=== PATIENT | female | born 1990 | race Caucasian/White ===

== ENCOUNTER → 2017-03-22 | Outpatient (REF) | payer OTHER ==
[~2017-03-22] MED LIST: ACET50TA PO; IBUP80TA PO; OMEP40CA2 PO; PREN27TA3 PO
== END ==
LOC: M LAB REF 17:35
PROVIDERS: ATTEND Surgery
DX: D48.5 Neoplasm of uncertain behavior of skin (principal)

== ENCOUNTER → 2017-04-27 | Outpatient (REF) | payer OTHER | LOC: M LAB REF 10:11 | PROVIDERS: ATTEND Physician Assistant | DX: J02.9 Acute pharyngitis, unspecified (principal) ==

== ENCOUNTER 2017-09-26 12:08 | Emergency (ER) | payer OTHER ==
[2017-09-26] MEDS: ACETAMINOPHEN 325 MG TAB PO (13:22)
== END 2017-09-26 14:14 | disposition home or self-care (01) ==
LOC: M ED 12:08
DX: S00.03XA Contusion of scalp, initial encounter (principal); V48.5XXA Car driver injured in noncollision transport accident in traffic accident, initial encounter; Y92.410 Unspecified street and highway as the place of occurrence of the external cause; Y93.9 Activity, unspecified; Z79.899 Other long term (current) drug therapy
CPT/HCPCS: 70450

== ENCOUNTER → 2017-10-11 | Outpatient (REF) | payer OTHER | LOC: M LAB REF 21:12 | DX: Z11.2 Encounter for screening for other bacterial diseases (principal) | CPT/HCPCS: 87430 ==

== ENCOUNTER → 2017-10-26 | Outpatient (REF) | payer OTHER ==
[2017-10-26 17:16] LABS: ALBUMIN 4.7 GM/DL (3.2-5.2); ALBUMIN/GLOBULIN RATIO 1.34 (1.00-1.93); ALKALINE PHOSPHATASE 62 U/L (45-117); ALT/SGPT 28 U/L (12-78); ANION GAP 7 MEQ/L (8-16); AST/SGOT 19 U/L (7-37); BILIRUBIN,TOTAL 0.6 MG/DL (0.2-1.0); BLOOD UREA NITROGEN 10 MG/DL (7-18); CALCIUM LEVEL 9.4 MG/DL (8.5-10.1); CARBON DIOXIDE LEVEL 26 MEQ/L (21-32); CHLORIDE LEVEL 109 MEQ/L (98-107); CREATININE FOR GFR 0.68 MG/DL (0.55-1.30); GLOMERULAR FILTRATION RATE > 60.0 (>60); GLUCOSE, FASTING 88 MG/DL (70-100); POTASSIUM SERUM 4.1 MEQ/L (3.5-5.1); SODIUM LEVEL 142 MEQ/L (136-145); TOTAL PROTEIN 8.2 GM/DL (6.4-8.2)
== END ==
LOC: M LAB REF 16:17
DX: E66.3 Overweight (principal)

== ENCOUNTER → 2018-01-07 | Outpatient (CLI) | payer OTHER ==
[2018-01-07 14:07] LABS: HCG, SERUM QUANTITATIVE < 1.0 MIU/ML
== END ==
LOC: M LAB 12:20
DX: N91.2 Amenorrhea, unspecified (principal)
CPT/HCPCS: 84702

== ENCOUNTER → 2018-04-11 | Outpatient (REF) | payer OTHER | LOC: M LAB REF 04-12 13:32 | DX: Z12.4 Encounter for screening for malignant neoplasm of cervix (principal) ==

== ENCOUNTER 2018-06-12 07:36 | Day surgery (SDC) | payer OTHER ==
[2018-06-12] MEDS ORDERED: PROPOFOL 200 MG/20 ML VIAL As Ordered ×4 (08:09→10:41)
[2018-06-12] MEDS ORDERED: fentaNYL 100 MCG/2 ML INJECTION (J3010) As Ordered ×2 (08:10→10:22)
[2018-06-12] MEDS ORDERED: MIDAZOLAM INJ 2 MG/2 ML VIAL (J2250) As Ordered ×2 (08:10→09:48)
[2018-06-12 08:24] LABS: CONTROL LINE UCG INT CTR LINE PRESENT; URINE PREG TEST NEGATIVE (NEGATIVE)
[2018-06-12] MEDS ORDERED: dexameTHASONE 4 MG/ML 1ML VIAL (J1100) As Ordered (08:29)
[2018-06-12] MEDS ORDERED: ONDANSETRON 4MG/2ML VIAL (J2405) As Ordered (08:29)
[2018-06-12] MEDS ORDERED: LIDOCAINE 2% INJ 100 MG/5 ML SDV (FOR ANES.) As Ordered (08:29)
[2018-06-12] MEDS: LR 1,000 ML IV (08:35)
[2018-06-12] MEDS: BUPIVACAINE HCL 0.25% 30 ML VIAL As Ordered (09:02)
[2018-06-12] MEDS: LIDOCAINE 1% MDV 20ML VIAL As Ordered ×3 (09:30→10:34)
[2018-06-12] MEDS: BUPIVACAINE HCL 0.5% 10 ML VIAL As Ordered (09:30)
[2018-06-12] MEDS ORDERED: KETAMINE HCL 200 MG/20 ML VIAL As Ordered (09:36)
[2018-06-12] MEDS: dexameTHASONE 4 MG/ML 1ML VIAL (J1100) As Ordered (10:44)
[2018-06-12] MEDS: NORCO, ANEXSIA 5/325MG TABLET (HYDROcodone/ACETAMINOPHEN) PO (11:26)
[2018-06-12] MEDS ORDERED: PERCOCET 5MG/325MG TAB PO (11:30)
[2018-06-12] MEDS ORDERED: LR 1,000 ML IV (11:30)
[2018-06-12] MEDS ORDERED: ONDANSETRON 4MG/2ML VIAL (J2405) IV (11:30)
== END 2018-06-12 12:26 | disposition home or self-care (01) ==
LOC: M SDC 07:36
DX: M21.612 Bunion of left foot (principal); M20.12 Hallux valgus (acquired), left foot; K21.9 Gastro-esophageal reflux disease without esophagitis; F41.9 Anxiety disorder, unspecified; Z79.899 Other long term (current) drug therapy; Z87.891 Personal history of nicotine dependence
CPT/HCPCS: 28296

== ENCOUNTER 2018-08-07 12:15 | Outpatient (RCR) | payer OTHER ==
[~2018-08-07 12:15] MED LIST changes: -ACET50TA PO; +BUPR150T3 PO; +BUSP10TA PO; +BUSP15TA47 PO; +CYMB60CA3 PO; +FIBER GUMMY PO; +HYDR-3713 PO; +MAPA500T2 PO; +MULTCAP PO
== END 2018-08-15 ==
LOC: M PT 12:15
PROVIDERS: ATTEND Podiatrist Foot & Ankle Surgery
DX: Z51.89 Encounter for other specified aftercare (principal); Z98.890 Other specified postprocedural states

== ENCOUNTER → 2019-10-04 | Outpatient (REF) | payer OTHER ==
[~2019-10-04] MED LIST changes: -OMEP40CA2 PO; +OMEP40CA97 PO
== END ==
LOC: M SFHCLERA 15:46
PROVIDERS: ATTEND Nurse Practitioner Family
DX: R05 Cough (principal)

== ENCOUNTER → 2020-08-25 | Outpatient (REF) | payer OTHER ==
[~2020-08-25] MED LIST changes: -BUPR150T3 PO; +BUPR150T4 PO
== END ==
LOC: M SFHCWAGY 15:44
PROVIDERS: ATTEND Nurse Practitioner Family
DX: Z12.4 Encounter for screening for malignant neoplasm of cervix (principal)

== ENCOUNTER → 2021-09-24 | Outpatient (CLI) | payer OTHER ==
[~2021-09-24] MED LIST changes: +BUPR150T12 PO; -BUPR150T4 PO; +CETI-24 PO; -CYMB60CA3 PO; +CYMB60CA4 PO; +FLUO20CA22 PO; +FLUTISP NARES; +OMEP40CA4 PO; -OMEP40CA97 PO; +POLY510P14 PO
== END ==
LOC: M LABSMTC 11:18
PROVIDERS: ATTEND Anesthesiology
DX: Z01.812 Encounter for preprocedural laboratory examination (principal); Z20.822 Contact with and (suspected) exposure to COVID-19

== ENCOUNTER 2021-09-29 10:46 | Day surgery (SDC) | payer OTHER ==
[~2021-09-29] VITALS: Ht 162.6 cm; Wt 55.1 kg
[~2021-09-29 10:46] MED LIST changes: +NS 1,000 ML IV ONE
[2021-09-29] MEDS ORDERED: LIDOCAINE 2% 100MG/5ML SDV (FOR ANES.) As Ordered ONE (12:37)
[2021-09-29] MEDS ORDERED: propofoL 200 MG/20 ML VIAL As Ordered ONE (12:37)
[2021-09-29 13:13] VITALS: BP 133/85
== END 2021-09-29 13:21 | disposition home or self-care (01) ==
LOC: M OPP 10:46
PROVIDERS: ATTEND Internal Medicine Gastroenterology
DX: K57.30 Diverticulosis of large intestine without perforation or abscess without bleeding (principal); R12 Heartburn; K31.7 Polyp of stomach and duodenum; K57.32 Diverticulitis of large intestine without perforation or abscess without bleeding; K64.8 Other hemorrhoids; K21.00 Gastro-esophageal reflux disease with esophagitis, without bleeding; K29.70 Gastritis, unspecified, without bleeding; F41.9 Anxiety disorder, unspecified; F32.A Depression, unspecified; Z87.891 Personal history of nicotine dependence; Z79.899 Other long term (current) drug therapy; Z83.3 Family history of diabetes mellitus; Z82.49 Family history of ischemic heart disease and other diseases of the circulatory system

== ENCOUNTER → 2021-11-25 | Outpatient (CLI) | payer OTHER ==
[~2021-11-25] MED LIST changes: -NS 1,000 ML IV ONE
== END ==
LOC: M RAD 14:28
PROVIDERS: ATTEND Otolaryngology
DX: J32.4 Chronic pansinusitis (principal)

== ENCOUNTER → 2021-12-22 | Outpatient (CLI) | payer OTHER ==
[~2021-12-22] MED LIST changes: +META28.32 PO; +PROTPAK PO; +TOPA1TAB PO
== END ==
LOC: M LABSMTC 09:29
PROVIDERS: ATTEND Anesthesiology
DX: Z01.812 Encounter for preprocedural laboratory examination (principal); Z11.52 Encounter for screening for COVID-19

== ENCOUNTER 2021-12-23 09:41 | Day surgery (SDC) | payer OTHER ==
[~2021-12-23] VITALS: Ht 162.6 cm; Wt 97.0 kg
[2021-12-23] MEDS ORDERED: fentaNYL 100 MCG/2 ML INJECTION As Ordered ONE (10:16)
[2021-12-23] MEDS ORDERED: propofoL 500 MG/50 ML VIAL As Ordered ONE (10:18)
[2021-12-23] MEDS ORDERED: LIDOCAINE 2% 100MG/5ML SDV (FOR ANES.) As Ordered ONE (11:56)
[2021-12-23] MEDS ORDERED: ONDANSETRON 4MG/2ML VIAL As Ordered ONE (11:58)
[2021-12-23] MEDS ORDERED: propofoL 200 MG/20 ML VIAL As Ordered ONE (12:06)
[2021-12-23 12:35] VITALS: BP 124/71
== END 2021-12-23 12:44 | disposition home or self-care (01) ==
LOC: M OPP 09:41
PROVIDERS: ATTEND Internal Medicine Gastroenterology
DX: K22.89 Other specified disease of esophagus (principal); K29.70 Gastritis, unspecified, without bleeding; I89.0 Lymphedema, not elsewhere classified; R10.13 Epigastric pain; B96.81 Helicobacter pylori [H. pylori] as the cause of diseases classified elsewhere; Z79.899 Other long term (current) drug therapy; Z87.891 Personal history of nicotine dependence
CPT/HCPCS: 43239; 88305; 88342; J2405; J3010

== ENCOUNTER → 2022-04-07 | Outpatient (REF) | payer OTHER | LOC: M SFHCWAGY 15:23 | PROVIDERS: ATTEND Advanced Practice Midwife | DX: Z12.4 Encounter for screening for malignant neoplasm of cervix (principal) ==

== ENCOUNTER → 2022-05-18 | Outpatient (REF) | payer OTHER | LOC: M SFHCPLAZ 16:55 | PROVIDERS: ATTEND Physician Assistant | DX: J06.9 Acute upper respiratory infection, unspecified (principal) ==

== ENCOUNTER → 2022-06-20 | Outpatient (REF) | payer OTHER | LOC: M SFHCPLAZ 15:25 | PROVIDERS: ATTEND Physician Assistant | DX: Z68.37 Body mass index [BMI] 37.0-37.9, adult (principal); Z53.9 Procedure and treatment not carried out, unspecified reason ==

== ENCOUNTER → 2022-07-03 | Outpatient (REF) | payer OTHER ==
[2022-07-04 09:07] LABS: APPEARANCE, URINE MANUAL CLEAR (CLEAR); COLOR, URINE MANUAL LT YELLOW (YELLOW); PH,URINE MAN 8.5 UNITS (5.0 - 7.0)
[2022-07-04 09:08] LABS: BILIRUBIN, URINE MANUAL NEGATIVE (NEGATIVE); GLUCOSE, URINE (UA) MANUAL NEGATIVE (NEGATIVE); KETONE, URINE MANUAL NEGATIVE (NEGATIVE); LEUKOCYTE ESTERASE, URINE MAN NEGATIVE (NEGATIVE); NITRITE, URINE MANUAL NEGATIVE (NEGATIVE); PROTEIN, URINE MANUAL NEGATIVE (NEGATIVE); SPECIFIC GRAVITY,URINE MANUAL 1.007 (1.002-1.035); UROBILINOGEN, URINE MANUAL NORMAL (NORMAL)
[2022-07-04 09:09] LABS: BLOOD URINE MANUAL NEGATIVE (NEGATIVE)
== END ==
LOC: M LAB REF 15:53
PROVIDERS: ATTEND Physician Assistant Medical
DX: N39.0 Urinary tract infection, site not specified (principal)

== ENCOUNTER → 2022-09-26 | Outpatient (REF) | payer OTHER | LOC: M LAB REF 20:54 | PROVIDERS: ATTEND Physician Assistant Medical | DX: J02.9 Acute pharyngitis, unspecified (principal) ==

== ENCOUNTER → 2022-11-08 | Outpatient (CLI) | payer OTHER ==
[~2022-11-08] MED LIST changes: +FLUT50SP17 NARES; -FLUTISP NARES
[2022-11-08 15:43] LABS: BASO # 0.1 10^3/uL (0.0-0.2); BASO % 0.7 % (0.0-1.0); EOS # 0.1 10^3/uL (0.0-0.5); EOS % 0.9 % (0.0-3.0); HEMATOCRIT 44.7 % (36.0-47.0); HEMOGLOBIN 14.7 g/dl (12.0-15.5); LYMPH % 26.2 % (24.0-44.0); MEAN CORPUSCULAR HEMOGLOBIN 29.3 pg (27.0-33.0); MEAN CORPUSCULAR HGB CONC 32.9 g/dl (32.0-36.5); MONO # 0.4 10^3/uL (0.0-0.8); MONO % 5.9 % (2.0-8.0); PLATELET COUNT, AUTOMATED 229 10^3/uL (150-450); RED BLOOD COUNT 5.02 10^6/uL (4.00-5.40); WHITE BLOOD COUNT 7.5 10^3/uL (4.0-10.0)
[2022-11-08 15:49] LABS: IRON (FE) 24 UG/DL (50-170); PERCENT SATURATION 8.9 % (13.2-45.0); TOTAL IRON BINDING CAPACITY 271 UG/DL (250-425)
[2022-11-08 15:50] LABS: ALBUMIN 4.2 G/DL (3.2-5.2); ALKALINE PHOSPHATASE 67 U/L (46-116); ALT/SGPT 31 U/L (7.0-40); AST/SGOT 21 U/L (<34); BILIRUBIN,TOTAL 0.9 MG/DL (0.3-1.2); BLOOD UREA NITROGEN 10 MG/DL (9-23); CALCIUM LEVEL 9.5 MG/DL (8.5-10.1); CARBON DIOXIDE LEVEL 24 MMOL/L (20-31); CHLORIDE LEVEL 106 MMOL/L (98-107); CHOLESTEROL LEVEL 211 MG/DL (<200); CHOLESTEROL RISK RATIO 4.36 (<5); CREATININE FOR GFR 0.68 MG/DL (0.55-1.30); GLOMERULAR FILTRATION RATE > 60.0 (>60); GLUCOSE, FASTING 84 MG/DL (60-100); HDL CHOLESTEROL 48.3 MG/DL (>40); LDL CHOLESTEROL 126.9 MG/DL (<100); NON-HDL-C 162.7 MG/DL; POTASSIUM SERUM 4.2 MMOL/L (3.5-5.1); SODIUM LEVEL 137 MMOL/L (136-145); TOTAL PROTEIN 7.3 G/DL (5.7-8.2); TRIGLYCERIDES LEVEL 179 MG/DL (<150)
[2022-11-08 15:51] LABS: THYROID STIMULATING HORMONE 1.403 uIU/ML (0.55-4.78)
[2022-11-08 15:52] LABS: FREE T4 1.05 NG/DL (0.89-1.76)
[2022-11-08 16:51] LABS: HEMOGLOBIN A1c 4.5 % (4.0-6.0)
== END ==
LOC: M PLALAB 12:15
PROVIDERS: ATTEND Physician Assistant
DX: R53.83 Other fatigue (principal); Z68.37 Body mass index [BMI] 37.0-37.9, adult

== ENCOUNTER → 2022-11-08 | Outpatient (CLI) | payer OTHER ==
[2022-11-08 15:44] LABS: BASO # 0.1 10^3/uL (0.0-0.2); BASO % 0.6 % (0.0-1.0); EOS # 0.1 10^3/uL (0.0-0.5); EOS % 1.2 % (0.0-3.0); HEMOGLOBIN 14.8 g/dl (12.0-15.5); LYMPH # 1.9 10^3/uL (1.5-5.0); LYMPH % 25.1 % (24.0-44.0); MEAN CORPUSCULAR HEMOGLOBIN 30.1 pg (27.0-33.0); MEAN CORPUSCULAR HGB CONC 33.6 g/dl (32.0-36.5); MEAN CORPUSCULAR VOLUME 89.4 fl (80.0-96.0); MONO # 0.5 10^3/uL (0.0-0.8); MONO % 5.8 % (2.0-8.0); NEUTROPHILS # 5.2 10^3/uL (1.5-8.5); NEUTROPHILS % 66.9 % (36.0-66.0); PLATELET COUNT, AUTOMATED 218 10^3/uL (150-450); RED BLOOD COUNT 4.92 10^6/uL (4.00-5.40); WHITE BLOOD COUNT 7.7 10^3/uL (4.0-10.0)
[2022-11-08 15:46] LABS: APPEARANCE, URINE CLEAR (CLEAR); BACTERIA, URINE AUTO NEGATIVE (NEGATIVE); BILIRUBIN, URINE AUTO NEGATIVE (NEGATIVE); BLOOD, URINE BLOOD NEGATIVE (NEGATIVE); COLOR, URINE STRAW (YELLOW); GLUCOSE, URINE (UA) AUTO NEGATIVE (NEGATIVE); KETONE, URINE AUTO NEGATIVE (NEGATIVE); LEUKOCYTE ESTERASE, URINE AUTO NEGATIVE (NEGATIVE); MUCUS, URINE SMALL (NEGATIVE); NITRITE, URINE AUTO NEGATIVE (NEGATIVE); PROTEIN, URINE AUTO NEGATIVE (NEGATIVE); RBC, URINE AUTO 0 /HPF (0-3); SPECIFIC GRAVITY URINE AUTO 1.006 (1.002-1.035); SQUAMOUS EPITHELIAL CELL UR AU 0 /HPF (0-6); UROBILINOGEN, URINE AUTO 0.2 mg/dL (0.0-2.0); WBC, URINE AUTO 0 /HPF (0-3)
[2022-11-08 15:48] LABS: BLOOD UREA NITROGEN 10 MG/DL (9-23); CALCIUM LEVEL 9.3 MG/DL (8.5-10.1); CARBON DIOXIDE LEVEL 25 MMOL/L (20-31); CHLORIDE LEVEL 107 MMOL/L (98-107); CREATININE FOR GFR 0.74 MG/DL (0.55-1.30); GLOMERULAR FILTRATION RATE > 60.0 (>60); GLUCOSE, FASTING 86 MG/DL (60-100); POTASSIUM SERUM 4.4 MMOL/L (3.5-5.1); SODIUM LEVEL 139 MMOL/L (136-145)
== END ==
LOC: M PLALAB 12:13
PROVIDERS: ATTEND Internal Medicine Gastroenterology
DX: K57.92 Diverticulitis of intestine, part unspecified, without perforation or abscess without bleeding (principal)

== ENCOUNTER → 2023-04-05 | Outpatient (CLI) | payer OTHER | LOC: M PLALAB 14:33 | PROVIDERS: ATTEND Internal Medicine Gastroenterology | DX: R10.32 Left lower quadrant pain (principal) ==

== ENCOUNTER → 2023-04-05 | Outpatient (CLI) | payer OTHER ==
[2023-04-05 18:44] LABS: ALBUMIN 4.4 G/DL (3.2-5.2); ALKALINE PHOSPHATASE 60 U/L (46-116); ALT/SGPT 19 U/L (7.0-40); AST/SGOT 15 U/L (<34); BILIRUBIN,TOTAL 0.6 MG/DL (0.3-1.2); BLOOD UREA NITROGEN 15 MG/DL (9-23); CALCIUM LEVEL 9.3 MG/DL (8.5-10.1); CARBON DIOXIDE LEVEL 25 MMOL/L (20-31); CHLORIDE LEVEL 109 MMOL/L (98-107); CREATININE FOR GFR 0.72 MG/DL (0.55-1.30); GLOMERULAR FILTRATION RATE > 60.0 (>60); GLUCOSE, FASTING 69 MG/DL (60-100); IRON (FE) 54 UG/DL (50-170); PERCENT SATURATION 18.8 % (13.2-45.0); POTASSIUM SERUM 4.2 MMOL/L (3.5-5.1); SODIUM LEVEL 140 MMOL/L (136-145); TOTAL IRON BINDING CAPACITY 288 UG/DL (250-425); TOTAL PROTEIN 7.2 G/DL (5.7-8.2)
[2023-04-05 18:54] LABS: BASO % 0.6 % (0.0-1.0); EOS # 0.1 10^3/uL (0.0-0.5); EOS % 1.7 % (0.0-3.0); HEMATOCRIT 44.6 % (36.0-47.0); LYMPH # 1.8 10^3/uL (1.5-5.0); LYMPH % 28.6 % (24.0-44.0); MEAN CORPUSCULAR HEMOGLOBIN 31.3 pg (27.0-33.0); MEAN CORPUSCULAR HGB CONC 33.6 g/dl (32.0-36.5); MEAN CORPUSCULAR VOLUME 92.9 fl (80.0-96.0); MONO # 0.4 10^3/uL (0.0-0.8); MONO % 6.5 % (2.0-8.0); NEUTROPHILS % 62.3 % (36.0-66.0); PLATELET COUNT, AUTOMATED 239 10^3/uL (150-450); WHITE BLOOD COUNT 6.4 10^3/uL (4.0-10.0)
[2023-04-05 19:47] LABS: FERRITIN 102.4 NG/ML (7.3-270.7)
== END ==
LOC: M PLALAB 14:35
PROVIDERS: ATTEND Physician Assistant
DX: E61.1 Iron deficiency (principal); A04.8 Other specified bacterial intestinal infections; K21.9 Gastro-esophageal reflux disease without esophagitis

== ENCOUNTER → 2023-08-15 | Outpatient (RCR) | payer OTHER ==
[~2023-08-15] MED LIST changes: -FLUT50SP17 NARES; +FLUTISP NARES
== END ==
LOC: M PT 07:28
PROVIDERS: ATTEND Physician Assistant
DX: M26.609 Unspecified temporomandibular joint disorder, unspecified side (principal)

== ENCOUNTER → 2023-08-24 | Outpatient (CLI) | payer OTHER | LOC: M WHC 07:13 | PROVIDERS: ATTEND Internal Medicine Gastroenterology | DX: N88.8 Other specified noninflammatory disorders of cervix uteri (principal) ==

== ENCOUNTER → 2023-09-13 | Outpatient (RCR) | payer OTHER | LOC: M PT 08-27 06:59 | PROVIDERS: ATTEND Physician Assistant | DX: M26.609 Unspecified temporomandibular joint disorder, unspecified side (principal) ==

== ENCOUNTER 2023-09-19 07:08 | Outpatient (RCR) | payer OTHER, SELFPAY | END 2023-10-14 | LOC: M PT 07:08 | PROVIDERS: ATTEND Physician Assistant | DX: M26.609 Unspecified temporomandibular joint disorder, unspecified side (principal) ==

== ENCOUNTER → 2023-10-24 | Outpatient (REF) | payer OTHER | LOC: M LAB REF 22:08 | PROVIDERS: ATTEND Physician Assistant | DX: J02.9 Acute pharyngitis, unspecified (principal) ==

== ENCOUNTER → 2023-11-01 | Outpatient (CLI) | payer OTHER | LOC: M PLALAB 11:47 | PROVIDERS: ATTEND Physician Assistant | DX: K59.00 Constipation, unspecified (principal); Z91.09 Other allergy status, other than to drugs and biological substances ==

== ENCOUNTER → 2023-11-09 | Outpatient (CLI) | payer OTHER ==
[2023-11-09 12:21] LABS: BASO % 0.6 % (0.0-1.0); EOS # 0.1 10^3/uL (0.0-0.5); EOS % 1.7 % (0.0-3.0); HEMATOCRIT 44.3 % (36.0-47.0); HEMOGLOBIN 15.1 g/dl (12.0-15.5); LYMPH # 1.9 10^3/uL (1.5-5.0); LYMPH % 37.5 % (24.0-44.0); MEAN CORPUSCULAR HEMOGLOBIN 30.8 pg (27.0-33.0); MEAN CORPUSCULAR HGB CONC 34.1 g/dl (32.0-36.5); MEAN CORPUSCULAR VOLUME 90.2 fl (80.0-96.0); MONO # 0.4 10^3/uL (0.0-0.8); MONO % 8.5 % (2.0-8.0); NEUTROPHILS # 2.7 10^3/uL (1.5-8.5); NEUTROPHILS % 51.3 % (36.0-66.0); PLATELET COUNT, AUTOMATED 242 10^3/uL (150-450); RED BLOOD COUNT 4.91 10^6/uL (4.00-5.40); WHITE BLOOD COUNT 5.2 10^3/uL (4.0-10.0)
[2023-11-09 12:29] LABS: C REACTIVE PROTEIN QUANTITATIV < 0.40 MG/DL (<1.0)
[2023-11-09 12:30] LABS: ERYTHROCYTE SEDIMENTATION RATE 15 mm/hr (0-20)
[2023-11-09 12:31] LABS: ALBUMIN 4.4 G/DL (3.2-5.2); ALKALINE PHOSPHATASE 58 U/L (46-116); ALT/SGPT 29 U/L (7.0-40); AST/SGOT 21 U/L (<34); BILIRUBIN,TOTAL 1.2 MG/DL (0.3-1.2); BLOOD UREA NITROGEN 10 MG/DL (9-23); CALCIUM LEVEL 9.9 MG/DL (8.5-10.1); CARBON DIOXIDE LEVEL 28 MMOL/L (20-31); CHLORIDE LEVEL 104 MMOL/L (98-107); CHOLESTEROL LEVEL 237 MG/DL (<200); CHOLESTEROL RISK RATIO 3.96 (<5); CREATININE FOR GFR 0.77 MG/DL (0.55-1.30); GLOMERULAR FILTRATION RATE > 60.0 (>60); GLUCOSE, FASTING 81 MG/DL (60-100); HDL CHOLESTEROL 59.7 MG/DL (>40); LDL CHOLESTEROL 147.9 MG/DL (<100); NON-HDL-C 177.3 MG/DL; POTASSIUM SERUM 4.7 MMOL/L (3.5-5.1); RHEUMATOID FACTOR QUANT 6.6 IU/ML (<14); SODIUM LEVEL 136 MMOL/L (136-145); TOTAL PROTEIN 7.4 G/DL (5.7-8.2); TRIGLYCERIDES LEVEL 147 MG/DL (<150)
[2023-11-09 12:33] LABS: FREE T4 1.22 NG/DL (0.89-1.76); THYROID STIMULATING HORMONE 1.902 uIU/ML (0.55-4.78)
[2023-11-09 12:37] LABS: HEMOGLOBIN A1c 4.4 % (4.0-6.0)
== END ==
LOC: M PLALAB 10:06
PROVIDERS: ATTEND Physician Assistant
DX: F98.8 Other specified behavioral and emotional disorders with onset usually occurring in childhood and adolescence (principal); Z82.49 Family history of ischemic heart disease and other diseases of the circulatory system; Z13.220 Encounter for screening for lipoid disorders; Z13.1 Encounter for screening for diabetes mellitus; R63.5 Abnormal weight gain; M79.89 Other specified soft tissue disorders; R20.2 Paresthesia of skin; I78.1 Nevus, non-neoplastic

== ENCOUNTER → 2023-11-15 | Outpatient (CLI) | payer OTHER | LOC: M PLAIMG 14:53 | PROVIDERS: ATTEND Physician Assistant | DX: R00.2 Palpitations (principal) ==

== ENCOUNTER → 2024-03-20 | Outpatient (CLI) | payer OTHER ==
[~2024-03-20] MED LIST changes: +FLUO-365 PO; -FLUO20CA22 PO
== END ==
LOC: M RAD 14:36
PROVIDERS: ATTEND Physician Assistant
DX: L81.9 Disorder of pigmentation, unspecified (principal); R09.89 Other specified symptoms and signs involving the circulatory and respiratory systems

== ENCOUNTER → 2024-05-29 | Outpatient (REF) | payer OTHER | LOC: M LAB REF 21:00 | PROVIDERS: ATTEND Physician Assistant Medical | DX: B34.9 Viral infection, unspecified (principal) ==

== ENCOUNTER → 2024-07-02 | Outpatient (REF) | payer OTHER ==
[2024-07-02 13:12] LABS: APPEARANCE, URINE HAZY (CLEAR); BACTERIA, URINE AUTO NEGATIVE (NEGATIVE); BILIRUBIN, URINE AUTO NEGATIVE (NEGATIVE); BLOOD, URINE BLOOD NEGATIVE (NEGATIVE); COLOR, URINE YELLOW (YELLOW); GLUCOSE, URINE (UA) AUTO NEGATIVE (NEGATIVE); KETONE, URINE AUTO NEGATIVE (NEGATIVE); LEUKOCYTE ESTERASE, URINE AUTO NEGATIVE (NEGATIVE); MUCUS, URINE SMALL (NEGATIVE); NITRITE, URINE AUTO NEGATIVE (NEGATIVE); PROTEIN, URINE AUTO NEGATIVE (NEGATIVE); RBC, URINE AUTO 0 /HPF (0-3); SPECIFIC GRAVITY URINE AUTO 1.016 (1.002-1.035); SQUAMOUS EPITHELIAL CELL UR AU 5 /HPF (0-6); UROBILINOGEN, URINE AUTO 0.2 mg/dL (0.0-2.0); WBC, URINE AUTO 1 /HPF (0-3)
[2024-07-02 13:21] LABS: CREATININE,RANDOM URINE 75.4 MG/DL
[2024-07-02 13:43] LABS: BASO % 0.6 % (0.0-1.0); EOS # 0.1 10^3/uL (0.0-0.5); EOS % 2.8 % (0.0-3.0); HEMATOCRIT 42.6 % (36.0-47.0); HEMOGLOBIN 14.3 g/dl (12.0-15.5); LYMPH # 1.8 10^3/uL (1.5-5.0); LYMPH % 38.3 % (24.0-44.0); MEAN CORPUSCULAR HEMOGLOBIN 30.6 pg (27.0-33.0); MEAN CORPUSCULAR HGB CONC 33.6 g/dl (32.0-36.5); MONO # 0.4 10^3/uL (0.0-0.8); MONO % 8.9 % (2.0-8.0); NEUTROPHILS # 2.3 10^3/uL (1.5-8.5); PLATELET COUNT, AUTOMATED 221 10^3/uL (150-450); RED BLOOD COUNT 4.68 10^6/uL (4.00-5.40); WHITE BLOOD COUNT 4.6 10^3/uL (4.0-10.0)
[2024-07-02 13:51] LABS: ERYTHROCYTE SEDIMENTATION RATE 10 mm/hr (0-20)
[2024-07-02 14:08] LABS: LDH LACTATE DEHYDROGENASE 204 U/L (120-246)
[2024-07-02 14:09] LABS: ALBUMIN 4.1 G/DL (3.2-5.2); ALKALINE PHOSPHATASE 50 U/L (35-104); ALT/SGPT 29 U/L (7.0-40); AST/SGOT 18 U/L (<34); BILIRUBIN,TOTAL 0.6 MG/DL (0.3-1.2); BLOOD UREA NITROGEN 13 MG/DL (9-23); C REACTIVE PROTEIN QUANTITATIV < 0.50 MG/DL (<1.0); CALCIUM LEVEL 9.4 MG/DL (8.5-10.1); CARBON DIOXIDE LEVEL 27 MMOL/L (20-31); CHLORIDE LEVEL 108 MMOL/L (98-107); CREATININE FOR GFR 0.53 MG/DL (0.55-1.30); GLOMERULAR FILTRATION RATE > 60.0 (>60); GLUCOSE, FASTING 77 MG/DL (60-100); POTASSIUM SERUM 4.2 MMOL/L (3.5-5.1); SODIUM LEVEL 142 MMOL/L (136-145)
[2024-07-02 14:10] LABS: CPK CREATINE PHOSPHOKINASE 55 U/L (34-145)
[2024-07-02 14:13] LABS: TOTAL 25(OH) VITAMIN D 18.6 NG/ML (20.0-100.0); VITAMIN B12 LEVEL 639 PG/ML (211-911)
[2024-07-02 14:14] LABS: COMPLEMENT C3 163.4 MG/DL (84.0-160.0); COMPLEMENT C4 22.8 MG/DL (12-36)
== END ==
LOC: M SFHCRHEU 09:42
PROVIDERS: ATTEND Internal Medicine Rheumatology
DX: R76.8 Other specified abnormal immunological findings in serum (principal); R52 Pain, unspecified; H04.123 Dry eye syndrome of bilateral lacrimal glands; R21 Rash and other nonspecific skin eruption; R53.83 Other fatigue

== ENCOUNTER → 2024-07-14 | Outpatient (CLI) | payer OTHER | LOC: M PLAIMG 13:03 | PROVIDERS: ATTEND Internal Medicine Rheumatology | DX: R76.8 Other specified abnormal immunological findings in serum (principal); R52 Pain, unspecified; R21 Rash and other nonspecific skin eruption ==

== ENCOUNTER → 2024-08-07 | Outpatient (CLI) | payer OTHER | LOC: M PLAIMG 07:11 | PROVIDERS: ATTEND Internal Medicine Rheumatology | DX: M46.1 Sacroiliitis, not elsewhere classified (principal) ==

== ENCOUNTER → 2024-08-13 | Outpatient (CLI) | payer OTHER | LOC: M WHC 14:07 | PROVIDERS: ATTEND Advanced Practice Midwife | DX: D25.9 Leiomyoma of uterus, unspecified (principal); Z97.5 Presence of (intrauterine) contraceptive device ==

== ENCOUNTER → 2025-05-14 | Outpatient (REF) | payer BC, OTHER | LOC: M SFHCPLAZ 10:48 | DX: J32.9 Chronic sinusitis, unspecified (principal) ==